=== PATIENT | female | born 1940 | race Two or more races ===

== ENCOUNTER 2023-11-25 17:55 | Inpatient (IN) | payer OTHER ==
[~2023-11-25] VITALS: Ht 160 cm; Wt 86.2 kg
--- NOTE | 2023-11-25 18:25 | NUR ---
PTE ALERTA Y ORIENTADA X3 REFIERE VENIR POR MALESTAR EN PECHO DESDE HACE UNOS THACKER. SE LE PALPA EL MIMSO Y PTE REFIERE DOLOR AL TACTO, TIENE PARCHO DE NITROGLYCERINA 0.4MG COLOCADO HOY EN LA MANANA. SE LE REALIZA EKG POR PROTOCOLO DE TRIAGE Y SE PRESENTA A MD FLORES QUIEN REFIERE UBICAR PTE EN PASILLO.
[2023-11-25] MEDS ORDERED: GLUMETZA500 MG PO (18:36)
[2023-11-25] MEDS ORDERED: JANTOVEN5 MG PO (18:37)
[2023-11-25] MEDS ORDERED: CLARITIN10 M1 PO (18:37)
[2023-11-25] MEDS ORDERED: VASOFLEX D1 CA1 EACH PO (18:37)
[2023-11-25] MEDS ORDERED: LYRICA50 MG PO (18:38)
[2023-11-25] MEDS ORDERED: ISOSORBIDE MONO60 MG PO (18:38)
[2023-11-25] MEDS ORDERED: NITROGLYCERIN0.4 MG TD (18:38)
[2023-11-25] MEDS ORDERED: VERELAN PM100 MG PO (18:39)
[2023-11-25] MEDS ORDERED: COZAAR50 MG PO (18:39)
[2023-11-25] MEDS ORDERED: MONTELUKAST SODI4 M1 PO (18:39)
--- NOTE | 2023-11-25 19:56 | NUR ---
SE EDUCA A PTE SOBRE TX MEDICO ESTA REFIERE ENTENDER, SE ENRIQUE MUESTRAS DE LABORATORIO UTILIZANDO MEDIDAS ASEPTICAS. SE COLOCA H/L FLOR DE EDEMA. SE NOTIFICA ESTUDIO DE RX PENDIENTE A REALIZAR.
[2023-11-25 20:21] LABS: HEMOGLOBIN 13.6 g/dL (12.0-15.00); MEAN CORPUSCULAR HEMOGLOBIN 29.9 pg (27.00-32.0); MEAN CORPUSCULAR HGB CONC 33.2 g/dl (32.0-36.0); PLATELET COUNT 173 K/uL (150-450); RED BLOOD COUNT 4.56 M/uL (4.00-6.00); RED CELL DISTRIBUTION WIDTH 17.1 % (11.5-14.5)
[2023-11-25 20:46] LABS: ALBUMIN 3.9 gm/dL (3.4-5.0); BILIRUBIN TOTAL 0.39 mg/dL (0.3-1.2); CALCIUM 8.9 mg/dL (8.5-10.1); CREATININE SERUM 1.07 mg/dL (0.55-1.02); GFR 49.09; GLOBULINA 3.1 G/DL (2.4-3.5); INR 2.47; PARTIAL THROMBOPLASTIN TIME 34.7 SECONDS (22.0-34.0); POTASSIUM 3.42 mEq/L (3.5-5.1)
[2023-11-25 20:56] LABS: PROTHROMBIN TIME 24.3 SECONDS (9.0-11.5)
[2023-11-25 21:59] LABS: PH,URINE 7.5 (5.0-8.0); URINE APPEARANCE Clear; URINE BILIRRUBIN Negative (NEGATIVE); URINE BLOOD Negative; URINE COLOR Yellow; URINE GLUCOSE Negative (NEGATIVE); URINE LEUKOCYTE Negative; URINE NITRATE Negative; URINE PROTEIN Negative (NEGATIVE); URINE UROBILINOGEN 0.2 E.U./dl
[2023-11-25 22:03] LABS: URINE BACTERIA 23.8 uL (0.0-1933); URINE EPITHELIAL CELLS 1.8 uL (0.0-38.8)
[2023-11-25 22:07] LABS: URINE RBC 0.7 uL (0.0-20.8); URINE WBC 1.2 uL (0.0-23.2)
--- NOTE | 2023-11-26 00:23 | NUR ---
SE COLECTA MUESTRA DE LAB BAJO MEDIDAS ASEPTICAS Y SE REALIZA EKG STAT.
[2023-11-26] MEDS ORDERED: ASPIRIN 81 MG TAB.CHEW PO STA (00:28)
[2023-11-26] MEDS ORDERED: CLOPIDOGREL BISULFATE 75 MG TABLET PO STA (00:29)
--- NOTE | 2023-11-26 00:47 | NUR ---
PACIENTE ALERTA Y ORIENTADA X3. SE UBICA EN CAMA K7 CONECTADA A MONITOR CARDIACO Y OXIMETRIA DE PULSO. ADMINISTRA MEDICAMENTOS ORDENADO POR MD HOPE DE ORIENTACION DE LOS MISMOS.SE MANTIENE BAJO OBSERVACION POR CAMBIOS SIGNIFICATIVOS.
--- NOTE | 2023-11-26 04:10 | NUR ---
PACIENTE ALERTA Y ORIENTADA X3. SE ORIENTA A PACIENTE SOBRE PROCEDIMIENTO A REALIZAR Y REFIRIO ENTENDER. SE REALIZA MUESTRAS DE LABORATORIO BAJO MEDIDAS ASEPTICAS. SE MANTIENE BAJO OBSERVACION POR CAMBIOS SIGNIFICATIVOS.
[2023-11-26] MEDS ORDERED: RINGERS SOLUTION,LACTATED 500 ML IV STA (06:50)
[2023-11-26] MEDS ORDERED: NITROGLYCERIN IN 5 % DEXTROSE 50 MG/250 ML BOTTLE IV STA (06:51)
--- NOTE | 2023-11-26 07:16 | NUR ---
SE RECIBE PTE ALERTA Y ORIENTADA X3 EN CAMA BAJA CON BARANDAS ELEVADAS POR SEGURIDAD. SE OBSERVA PTE CONECTADA A MONITOR CARDIACO Y OXIMETRIA DE PULSO CONTINUA. PTE CON BUEN PATRON RESPIRATORIO. PEND CONSULTA CON DR. GILLILAND.
[2023-11-26] MEDS ORDERED: ALBUTEROL SULFATE 3 ML/2.5 MG AMPUL.NEB IH ONE (08:15)
[2023-11-26] MEDS ORDERED: VERAPAMIL HCL 180 MG CAP24H.PEL PO SCH (14:06)
[2023-11-26] MEDS ORDERED: LOSARTAN POTASSIUM 100 MG TABLET PO SCH (14:06)
[2023-11-26] MEDS ORDERED: NITROGLYCERIN IN 5 % DEXTROSE 50 MG/250 ML BOTTLE IV SCH (14:15)
[2023-11-26] MEDS ORDERED: ACETAMINOPHEN 500 MG GEL..CAP PO PRN (14:15)
[2023-11-26] MEDS ORDERED: VERAPAMIL HCL 180 MG TABLET.SA PO SCH (14:31)
[2023-11-26] MEDS ORDERED: NITROGLYCERIN IN 5 % DEXTROSE 250 ML IV SCH (14:45)
[2023-11-26] MEDS ORDERED: Pregabalin 50 MG CAPSULE PO SCH (17:00)
[2023-11-26] MEDS ORDERED: WARFARIN SODIUM 4 MG TABLET PO SCH (21:00)
[2023-11-26] MEDS ORDERED: HYDROCHLOROTHIAZIDE 12.5 MG CAPSULE PO SCH (22:57)
[2023-11-27] MEDS ORDERED: INSULIN LISPRO 1,000 UNIT/10 ML UNITS SUBCUTANEO PRN (23:15)
[2023-11-27] MEDS ORDERED: DEXTROSE 50 % IN WATER 0.5 G/ML DISP.SYRIN IV PRN (23:15)
[2023-11-28] MEDS ORDERED: ENOXAPARIN SODIUM 80 MG/0.8 ML SYRINGE SUBCUTANEO SCH (09:00)
[2023-11-28 16:56] LABS: INR 1.51
[2023-11-28 17:06] LABS: PROTHROMBIN TIME 15.4 SECONDS (9.0-11.5)
[2023-11-29 06:02] LABS: INR 1.49
[2023-11-29 06:10] LABS: PROTHROMBIN TIME 15.2 SECONDS (9.0-11.5)
[2023-11-30 06:52] LABS: INR 1.45; PROTHROMBIN TIME 14.8 SECONDS (9.0-11.5)
[2023-11-30] MEDS ORDERED: POLYETHYLENE GLYCOL 3350 17 GM BLIST.PACK PO SCH (09:00)
[2023-11-30] MEDS ORDERED: BUDESONIDE 0.5 MG/2 ML AMPUL.NEB IH SCH (09:00)
[2023-11-30] MEDS ORDERED: LEVALBUTEROL HCL 1.25 MG/3 ML SOLUTION IH SCH (09:00)
== END 2023-11-30 23:29 | disposition home or self-care (01) | DRG 305 ==
LOC: ER 17:55 → MEDI 11-26 14:57
PROVIDERS: Emergency Medicine; ADMIT Internal Medicine; ATTEND Internal Medicine
PROC: B246ZZZ Ultrasonography of Right and Left Heart (ICD-10-PCS; principal; 2023-11-26)
PROC: 4A02XM4 Measurement of Cardiac Total Activity, External Approach (ICD-10-PCS; 2023-11-28)
PROC: 3E073KZ Introduction of Other Diagnostic Substance into Coronary Artery, Percutaneous Approach (ICD-10-PCS; 2023-11-28)
PROC: 4A12X4Z Monitoring of Cardiac Electrical Activity, External Approach (ICD-10-PCS; 2023-11-28)
DX: I16.9 Hypertensive crisis, unspecified (principal); I20.0 Unstable angina; I11.9 Hypertensive heart disease without heart failure; E11.40 Type 2 diabetes mellitus with diabetic neuropathy, unspecified; Z79.84 Long term (current) use of oral hypoglycemic drugs; Z79.01 Long term (current) use of anticoagulants